=== PATIENT | male | born 1975 | race Caucasian/White ===

== ENCOUNTER 2023-06-03 14:03 | Emergency (ER) | payer OTHER, SELFPAY ==
[2023-06-03] VITALS (8 sets, daily range): BP systolic 127–156; BP diastolic 75–102; PULSE 81–97; RESP 16–28; TEMP 36.9; O2SAT 95–97; BMI 31.6
--- NOTE | 2023-06-03 14:22 | DI.RAD.S_ITS ---
PROCEDURE: XR CHEST 1V INDICATIONS: chest pain TECHNIQUE: One view of the chest was acquired. COMPARISON: None. FINDINGS: Surgical changes and devices: None. Lungs and pleura: Left basilar atelectasis versus consolidation. Low lung volumes. No pleural effusions or pneumothorax. Mediastinum: Mediastinal contours appear normal. Heart size is normal. Bones and chest wall: No suspicious bony lesions. Overlying soft tissues appear unremarkable. IMPRESSION: Left basilar atelectasis versus consolidation. Low lung volumes Dictated by: Carlos Escalera M.D. on 06/03/2023 at 15:49 Approved by: Carlos Escalera M.D. on 06/03/2023 at 15:49
[2023-06-03] MEDS: ASPIRIN 81 MG CHEW TAB 324 MG PO (14:47)
[2023-06-03 14:48] LABS: Add Manual Diff / Slide Review NO; Basophils Absolute Auto 100 /uL (0-100); Eosinophils Absolute Auto 200 /uL (0-450); Eosinophils Percent Auto 1.7 % (2-4); Hematocrit 39.3 % (41-53); Hemoglobin 13.3 g/dL (13.5-17.5); Lymphocytes Absolute Auto 2300 /uL (1100-4500); Mean Corpuscular HGB Conc 33.9 % (30-36); Mean Corpuscular Hemoglobin 29.2 PG (26-34); Mean Corpuscular Volume 86.2 fL (80-100); Monocytes Absolute Auto 1500 /uL (0-900); Monocytes Percent Auto 10.5 % (3-14); Neutrophils Absolute Auto 10200 /uL (1500-7000); Neutrophils Percent Auto 70.8 % (50-75); Platelet Count 311 X10^3/uL (150-400); Red Blood Cell Count 4.56 X10^6/uL (4.5-5.9); Red Cell Distribution Width 12.8 % (11.6-14.8); White Blood Cell Count 14.4 X10^3/uL (4.5-11.0)
[2023-06-03 14:56] LABS: INR 1.2 (0.9-1.3); Prothrombin Time 13.3 SECONDS (9.4-12.5)
[2023-06-03 14:57] LABS: HEMOLYSIS 22 (0-50)
[2023-06-03 14:59] LABS: PTT Partial Thromboplastin Tim 36 SECONDS (25.1-36.5)
[2023-06-03 15:02] LABS: Alanine Aminotransferase 23 IU/L (<50); Albumin 4.5 g/dL (3.5-5.0); Albumin Globulin Ratio 1.3 (1.0-2.8); Alkaline Phosphatase 46 U/L (38-126); Aspartate Aminotransferase 28 IU/L (17-59); BUN Creatinine Ratio 27.7 (6-22); Bilirubin Total 0.8 mg/dL (0.2-1.3); Blood Urea Nitrogen 23 mg/dL (9-20); Calcium 9.5 mg/dL (8.4-10.2); Carbon Dioxide 28 mmol/L (22-32); Chloride 103 mmol/L (98-107); Creatine Kinase 116 U/L (55-170); Estimated Glomerular Filt Rate > 60 mL/min (>60); Globulin 3.6 g/dL (1.7-4.1); Glucose 105 mg/dL (70-100); Lipase 66 U/L (23-300); Potassium 4.4 mmol/L (3.4-5.1); Sodium 137 mmol/L (137-145); Total Protein 8.1 g/dL (6.3-8.2)
--- NOTE | 2023-06-03 15:16 | ED_ITS ---
HPI - Chest Pain General Chief Complaint: Chest Pain Stated Complaint: chest pain brought in by [facility] Time Seen by Provider: 06/03/23 14:34 Source: patient and family Mode of arrival: Wheelchair History of Present Illness HPI narrative: 47-year-old male presents by private vehicle from home for left-sided chest pain that woke him up from sleep this morning. Pain is sharp, worse with deep inspiration and movement. Nothing seems to make it better. Denies shortness of breath or cough. Denies history of coronary disease Related Data Previous Rx's Medication Instructions Recorded doxycycline hyclate 100 mg capsule 100 mg PO BID #10 caps 06/03/23 hydrocodone 5 mg-acetaminophen 325 1 tab PO Q8H PRN pain #8 tabs 06/03/23 mg tablet Allergies Allergy/AdvReac Type Severity Reaction Status Date / Time Sulfa (Sulfonamide Allergy Hives Verified 06/03/23 15:23 Antibiotics) Review of Systems Review of Systems Narrative: Negative except as noted above Patient History Social History Smoking Status: Never smoker Smoking Status: Never smoker Substance Use Type: does not use Exam Initial Vital Signs Initial Vital Signs: Vital Signs Temperature 98.4 F 06/03/23 14:13 Pulse Rate 97 H 06/03/23 14:13 Respiratory Rate 16 06/03/23 14:13 Blood Pressure 140/91 H 06/03/23 14:13 Pulse Oximetry 97 06/03/23 14:13 Oxygen Delivery Method Room Air 06/03/23 14:13 Const: Awake, alert, uncomfortable, in pain Cardiac: regular rate, regular rhythm RESP: Shallow inspiration, grossly clear bilaterally MSK: Atraumatic, full range of motion, pulses equal, no edema Skin: Warm, Dry, intact, no rashes Neuro: AO x3, CN II-XII grossly intact, moves all extremities Course Orders Ordered: Discontinued Medications Aspirin (Aspirin 81 Mg Chew Tab) 324 mg PO NOW ONE Stop: 06/03/23 14:23 Last Admin: 06/03/23 14:47 Dose: 324 mg Documented By: NL Morphine Sulfate (Morphine 4 Mg/Ml Inj) 4 mg IV NOW ONE Stop: 06/03/23 15:17 Last Admin: 06/03/23 15:23 Dose: 4 mg Documented By: RLS Vital Signs Vital signs: Vital Signs - 8 hr 06/03/23 14:13 06/03/23 15:15 06/03/23 15:59 Temperature 98.4 F Pulse Rate 97 H 86 85 Respiratory Rate 16 17 17 Blood Pressure 140/91 H 156/102 H 127/75 Pulse Oximetry 97 95 Oxygen Delivery Method Room Air Room Air MDM - Chest Pain Differential Diagnosis Differential diagnosis: Likely fracture of rib, pneumothorax and stable angina Lab Data 06/03/23 14:40 06/03/23 14:40 Labs: Lab Results 06/03/23 Range/Units 14:40 WBC 14.4 H (4.5-11.0) X10^3/uL RBC 4.56 (4.5-5.9) X10^6/uL Hgb 13.3 L (13.5-17.5) g/dL Hct 39.3 L (41-53) % MCV 86.2 (80-100) fL MCH 29.2 (26-34) PG MCHC 33.9 (30-36) % RDW 12.8 (11.6-14.8) % Plt Count 311 (150-400) X10^3/uL Neut % (Auto) 70.8 (50-75) % Lymph % (Auto) 16.0 L (25-40) % Harrison % (Auto) 10.5 (3-14) % Eos % (Auto) 1.7 L (2-4) % Baso % (Auto) 1.0 (0-2) % Neut # (Auto) 52513 H (1684-8639) /uL Lymph # (Auto) 2300 (5798-3073) /uL Harrison # (Auto) 1500 H (0-900) /uL Eos # (Auto) 200 (0-450) /uL Baso # (Auto) 100 (0-100) /uL PT 13.3 H (9.4-12.5) SECONDS INR 1.2 (0.9-1.3) APTT 36 (25.1-36.5) SECONDS D-Dimer 389 (<500) ng/ml Sodium 137 (137-145) mmol/L Potassium 4.4 (3.4-5.1) mmol/L Chloride 103 (98-107) mmol/L Carbon Dioxide 28 (22-32) mmol/L BUN 23 H (9-20) mg/dL Creatinine 0.83 (0.66-1.25) mg/dL Estimated GFR > 60 (>60) mL/min BUN/Creatinine Ratio 27.7 H (6-22) Glucose 105 H (70-100) mg/dL Calcium 9.5 (8.4-10.2) mg/dL Magnesium 2.0 (1.6-2.3) mg/dL Total Bilirubin 0.8 (0.2-1.3) mg/dL AST 28 (17-59) IU/L ALT 23 (<50) IU/L Alkaline Phosphatase 46 (38-126) U/L Total Creatine Kinase 116 (55-170) U/L Troponin I < 0.012 (0.01-0.034) ng/mL Total Protein 8.1 (6.3-8.2) g/dL Albumin 4.5 (3.5-5.0) g/dL Globulin 3.6 (1.7-4.1) g/dL Albumin/Globulin Ratio 1.3 (1.0-2.8) Lipase 66 (23-300) U/L Imaging Data Chest x-ray: Radiologist's Impression: PROCEDURE: XR CHEST 1V INDICATIONS: chest pain TECHNIQUE: One view of the chest was acquired. COMPARISON: None. FINDINGS: Surgical changes and devices: None. Lungs and pleura: Left basilar atelectasis versus consolidation. Low lung volumes. No pleural effusions or pneumothorax. Mediastinum: Mediastinal contours appear normal. Heart size is normal. Bones and chest wall: No suspicious bony lesions. Overlying soft tissues appear unremarkable. IMPRESSION: Left basilar atelectasis versus consolidation. Low lung volumes Dictated by: Carlos Escalera M.D. on 06/03/2023 at 15:49 Approved by: Carlos Escalera M.D. on 06/03/2023 at 15:49 CT scan - chest: Radiologist's Impression: PROCEDURE: CT ANGIO CHEST PE PROTOCOL INDICATIONS: SEVERE LEFT PLEURITIC PAIN, ABNORMAL CXR TECHNIQUE: After the administration of intravenous contrast, 2 mm thick sections acquired from the pulmonary apices to the posterior costophrenic angles. 3-dimensional maximum intensity projection (MIP) coronal and sagittal reformats were then acquired through the thorax. For radiation dose reduction, the following was used: automated exposure control, adjustment of mA and/or kV according to patient size. COMPARISON: None. FINDINGS: Image quality: Diagnostic. Pulmonary arteries: Pulmonary arteries are normal in size, and demonstrate no intraluminal filling defects to suggest central pulmonary embolism. Lower Neck: No enlarged lymph nodes. Thyroid: No thyroid nodules which require sonographic follow up, per consensus guidelines. Axillae: No enlarged lymph nodes. Chest Wall: Unremarkable. Bones: Degenerative change. Old compressions of T11, T12, and L1.. Lungs and Pleura: No pneumothorax or pleural effusions. There is a focal wedge- shaped pleural-based pneumonia involving the lingula of the left upper lobe. The area of consolidation measures approximately 4.3 x 7.7 cm on image 137/5. There is no associated pleural fluid. Heart: Heart size is normal. No pericardial effusion. Thoracic Vessels: No aortic aneurysm. Mediastinum and Shikha: No enlarged lymph nodes. Esophagus: No wall thickening. No hiatal hernia. Upper Abdomen: Visualized upper abdomen solid organs and bowel loops appear normal. IMPRESSION: 1. No acute pulmonary emboli. 2. Dense focal pneumonia in the lingular portion of the left upper lobe. Comment: Progress films are recommended until clear. Dictated by: Ruben Ochoa M.D. on 06/03/2023 at 16:54 Approved by: Ruben Ochoa M.D. on 06/03/2023 at 16:58 MDM Narrative Medical decision making narrative: Uncomfortable patient with acute onset left-sided chest pain that is pleuritic in nature. He does have some reproducible tenderness to palpation in the left side of his chest, but pain is pleuritic in nature and also deeper inside than just superficial. Morphine ordered for pain. Chest x-ray shows trace consolidation on the left-hand side. Laboratory work significant for WBC count 14.4, hemoglobin 13.3, sodium 137, potassium 4.4, creatinine 0.83, troponin undetectable. D-dimer 389, which technically is within normal limits, however based on the extreme nature of patient's pleuritic pain we will order a CT angio to ensure that there was no pulmonary embolism. Patient has no known risk factors for PE, however his pain seems disproportionate to the disease burden seen on chest x-ray. CT angio shows left-sided consolidation, no PE. Patient and his significant other advised of all lab and imaging findings. Pain medications and antibiotics sent to pharmacy of choice. Patient was advised to follow up with the PCP to ensure resolution of his pneumonia. Discharge Plan Departure Patient Disposition: Home Clinical Impression: Chest pain, Pneumonia Instructions: DI for Pneumonia -- Adult Activity Restrictions/Additional Instructions: Your laboratory work, chest x-ray, and CT indicate that you have left-sided pneumonia, which is likely the cause of your chest pain. Take all of your antibiotics as prescribed, it was very important that you follow up with the primary care physician to ensure that this resolves. Prescriptions: New doxycycline hyclate 100 mg capsule 100 mg PO BID Qty: 10 0RF hydrocodone-acetaminophen 5-325 mg tablet 1 tab PO Q8H PRN (Reason: pain) Qty: 8 0RF Referrals: Miscellaneous,Doctor, MD [Primary Care Provider] - Stand Alone Forms: Patient Portal/API
[2023-06-03] MEDS: MORPHINE 4 MG/ML INJ IV (15:23)
[2023-06-03 15:26] LABS: D Dimer 389 ng/ml (<500)
[2023-06-03 15:37] LABS: Troponin I < 0.012 ng/mL (0.01-0.034)
--- NOTE | 2023-06-03 16:09 | DI.CT.S_ITS ---
PROCEDURE: CT ANGIO CHEST PE PROTOCOL INDICATIONS: SEVERE LEFT PLEURITIC PAIN, ABNORMAL CXR TECHNIQUE: After the administration of intravenous contrast, 2 mm thick sections acquired from the pulmonary apices to the posterior costophrenic angles. 3-dimensional maximum intensity projection (MIP) coronal and sagittal reformats were then acquired through the thorax. For radiation dose reduction, the following was used: automated exposure control, adjustment of mA and/or kV according to patient size. COMPARISON: None. FINDINGS: Image quality: Diagnostic. Pulmonary arteries: Pulmonary arteries are normal in size, and demonstrate no intraluminal filling defects to suggest central pulmonary embolism. Lower Neck: No enlarged lymph nodes. Thyroid: No thyroid nodules which require sonographic follow up, per consensus guidelines. Axillae: No enlarged lymph nodes. Chest Wall: Unremarkable. Bones: Degenerative change. Old compressions of T11, T12, and L1.. Lungs and Pleura: No pneumothorax or pleural effusions. There is a focal wedge-shaped pleural-based pneumonia involving the lingula of the left upper lobe. The area of consolidation measures approximately 4.3 x 7.7 cm on image 137/5. There is no associated pleural fluid. Heart: Heart size is normal. No pericardial effusion. Thoracic Vessels: No aortic aneurysm. Mediastinum and Shikha: No enlarged lymph nodes. Esophagus: No wall thickening. No hiatal hernia. Upper Abdomen: Visualized upper abdomen solid organs and bowel loops appear normal. IMPRESSION: 1. No acute pulmonary emboli. 2. Dense focal pneumonia in the lingular portion of the left upper lobe. Comment: Progress films are recommended until clear. Dictated by: Ruben Ochoa M.D. on 06/03/2023 at 16:54 Approved by: Ruben Ochoa M.D. on 06/03/2023 at 16:58
== END 2023-06-03 17:38 | disposition home or self-care (01) ==
PROVIDERS: Emergency Provider Emergency Medicine
DX: J18.9 Pneumonia, unspecified organism (principal); R07.9 Chest pain, unspecified
CPT/HCPCS: 36415; 71045; 71275; 80053; 82550; 83690; 83735; 84484; 85025; 85379; 85610; 85730; 93005; 93010; 96374; 99284; J2270; Q9967